=== PATIENT | male | born 1960 | race Caucasian/White ===

== ENCOUNTER 2021-05-18 20:31 | Emergency (ER) | payer BC ==
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
[2021-05-18] MEDS ORDERED: diphenhydrAMINE 25 MG Cap PO ONE (20:51)
[2021-05-18] MEDS ORDERED: methylPREDNISolone Sodium Succinate 125 MG/2 ML SDV IM ONE (20:51)
== END 2021-05-18 21:14 | disposition home or self-care (01) ==
LOC: JP.ED 20:31
DX: T63.441A Toxic effect of venom of bees, accidental (unintentional), initial encounter (principal)
CPT/HCPCS: 96372; 99282; A9270; J2930